=== PATIENT | female | born 1985 | race Caucasian/White ===

== ENCOUNTER 2017-07-13 07:06 | Emergency (ER) | payer OTHER ==
--- NOTE | 2017-07-13 07:22 | EDM.PDOC ---
ED HPI GENERAL MEDICAL PROBLEM - General Chief Complaint: Chest Pain Stated Complaint: CHEST PAIN Time Seen by Provider: 07/13/17 07:20 Source of Information: Reports: Patient, RN Notes Reviewed - History of Present Illness INITIAL COMMENTS - FREE TEXT/NARRATIVE: 32-year-old female comes in with anterior chest discomfort that started late last evening about 8-10 hours ago. This started as an indigestion type feeling from the upper abdomen radiating up into the chest. there has been some radiation of discomfort to the left chest and left medial arm as well. She does describe the chest discomfort as a burning and also achy type feeling. She has not been coughing and there's been no fever or chills. He has had some mild nausea but no vomiting. He states she does have history of "sensitive stomach" and gastric reflux. She did take some tones last evening but that did not give him much relief with the pain persisting as noted above. He does not have history of heart disease, diabetes or hypertension. No known significant medical problems. Chest Pain Score (Numeric/FACES): 7 - Related Data Allergies Allergy/AdvReac Type Severity Reaction Status Date / Time erythromycin base Allergy Hives Verified 07/13/17 07:13 Sulfa (Sulfonamide Allergy Hives Verified 07/13/17 07:13 Antibiotics) Home Meds: Home Meds Buspirone. 07/13/17 [History] Vilazodone Hydrochloride [Viibryd] 40 mg PO DAILY 07/13/17 [History] Wellbutrin. 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 Denies: Pleuritic Chest Pain Cardiovascular: Reports: Chest Pain. Denies: Lightheadedness GI/Abdominal: Reports: Abdominal Pain, Nausea (Upper mid abdomen). Denies: Diarrhea, Vomiting : Reports: No Symptoms Musculoskeletal: Reports: Shoulder Pain (Left), Arm Pain. Denies: Back Pain Skin: Reports: No Symptoms Neurological: Reports: No Symptoms ED EXAM, GENERAL - Physical Exam Exam: See Below General Appearance: Alert, No Apparent Distress Eye Exam: Bilateral Eye: PERRL Throat/Mouth: Normal Inspection, Normal Oropharynx Head: Atraumatic. No: Facial Swelling Neck: Supple, Full Range of Motion Respiratory/Chest: No Respiratory Distress, Lungs Clear, Normal Breath Sounds, Other (mild tenderness of the left upper sternal border) Cardiovascular: Regular Rate, Rhythm GI/Abdominal: Soft, Tender (Mild tenderness upper mid abdomen) Extremities: Normal Inspection, Normal Range of Motion Neurological: Alert, Oriented, No Motor/Sensory Deficits Skin Exam: Warm, Dry, Normal Color EKG INTERPRETATION EKG Date: 07/13/17 Rhythm: NSR [place]: Normal P-Wave: Present QRS: Normal ST-T: Normal Course - Vital Signs Last Recorded V/S: Last Vital Signs Temp 97.0 F 07/13/17 07:15 Pulse 96 07/13/17 07:15 Resp 15 07/13/17 07:15 BP 118/85 07/13/17 07:15 Pulse Ox 98 07/13/17 07:15 - Orders/Labs/Meds Orders: Active Orders 24 hr Category Date Time Status EKG 12 Lead [EKG Documentation Completion] [RC] STAT Care 07/13/17 07:21 Active Labs: Laboratory Tests 07/13/17 07/13/17 Range/Units 07:53 07:53 WBC 5.59 (3.98-10.04) K/mm3 RBC 4.14 (3.98-5.22) M/mm3 Hgb 11.8 (11.2-15.7) gm/L Hct 36.5 (34.1-44.9) % MCV 88.2 (79.4-94.8) fl MCH 28.5 (25.6-32.2) pg MCHC 32.3 (32.2-35.5) g/dl RDW Std Deviation 41.4 (36.4-46.3) fL Plt Count 328 (182-369) K/mm3 MPV 9.5 (9.4-12.3) fl Neut % (Auto) 56.4 (34.0-71.1) % Lymph % (Auto) 34.5 (19.3-51.7) % [place] % (Auto) 7.3 (4.7-12.5) % Eos % (Auto) 1.1 (0.7-5.8) Baso % (Auto) 0.5 (0.1-1.2) % Neut # (Auto) 3.15 (1.56-6.13) K/mm3 Lymph # (Auto) 1.93 (1.18-3.74) K/mm3 [place] # (Auto) 0.41 H (0.24-0.36) K/mm3 Eos # (Auto) 0.06 (0.04-0.36) K/mm3 Baso # (Auto) 0.03 (0.01-0.08) K/mm3 Sodium 140 (136-145) mEq/L Potassium 4.0 (3.5-5.1) mEq/L Chloride 107 (98-107) mEq/L Carbon Dioxide 25 (21-32) mEq/L Anion Gap 12.0 (5-15) BUN 9 (7-18) mg/dL Creatinine 0.8 (0.55-1.02) mg/dL Est Cr Clr Drug Dosing 87.99 mL/min Estimated GFR (MDRD) > 60 (>60) mL/min BUN/Creatinine Ratio 11.3 L (14-18) Glucose 100 (74-106) mg/dL Calcium 9.3 (8.5-10.1) mg/dL Total Bilirubin 0.3 (0.2-1.0) mg/dL AST 11 L (15-37) U/L ALT 14 (14-59) U/L Alkaline Phosphatase 44 L (46-116) U/L Total Protein 6.9 (6.4-8.2) g/dl Albumin 3.2 L (3.4-5.0) g/dl Globulin 3.7 gm/dL Albumin/Globulin Ratio 0.9 L (1-2) Lipase 108 (73-393) U/L Meds: Medications Discontinued Medications Generic Name Dose Route Start Last Admin Trade Name Freq PRN Reason Stop Dose Admin Al Hydroxide/Mg Hydroxide 30 0 ml 07/13/17 07:35 07/13/17 07:42 ml/ Lidocaine HCl 15 ml PO 07/13/17 07:36 45 ml ONETIME ONE Administration - Re-Assessments/Exams Free Text/Narrative Re-Assessment/Exam: 12/24/17 09:14. Patient did get moderate relief from the GI cocktail. He states her "stomach feels much better". She still does have some mild achy burning discomfort of the left shoulder, that does radiate to the proximal left medial arm. Etiology of that is not clear at this time. EKG completely normal. She has been breathing very comfortably, sats are running 100%. Her pain does not radiate to the back. She does feel comfortable going home at this time. I am going to add omeprazole at this time to get further antacid reduction for her. Discharge instructions as documented. Departure - Departure Time of Disposition: 08:50 Disposition: Home, Self-Care 01 Condition: Fair Clinical Impression: Atypical chest pain GE reflux Qualifiers: Esophagitis presence: esophagitis presence not specified Qualified Code(s): K21.9 - Gastro-esophageal reflux disease without esophagitis Instructions: Nonspecific Chest Pain Referrals: PCP,None [Primary Care Provider] - Forms: ED Department Discharge Additional Instructions: Continue to be careful with your diet, usually better to eat small amounts somewhat frequently, continue the ranitidine twice daily, you may also start omeprazole 40 mg once daily for now, see your GI specialist, upcoming appointment as planned, return to ED if symptoms worsening in any way. - My Orders Last 24 Hours: My Active Orders 07/13/17 07:21 EKG 12 Lead [EKG Documentation Completion] [RC] STAT - Assessment/Plan Last 24 Hours: My Active Orders 07/13/17 07:21 EKG 12 Lead [EKG Documentation Completion] [RC] STAT
[2017-07-13] MEDS ORDERED: Alum Hydrox/Mag Hydrox/Simeth 30 ML, Lidocaine 2% 15 ML PO ONE ×2 (07:35)
== END 2017-07-13 09:10 | disposition home or self-care (01) ==
LOC: JD.ED 07:06
DX: K21.9 Gastro-esophageal reflux disease without esophagitis (principal); Z88.1 Allergy status to other antibiotic agents; Z88.2 Allergy status to sulfonamides; Z79.84 Long term (current) use of oral hypoglycemic drugs; Z79.899 Other long term (current) drug therapy
CPT/HCPCS: 36415; 80053; 83690; 85025; 93005; 99285; A9270; 93010; 99283